=== PATIENT | female | born 1995 | race Caucasian/White ===

== ENCOUNTER 2020-04-19 15:11 | Emergency (ER) | payer OTHER ==
[2020-04-19 17:15] LABS: ABSOLUTE MONOCYTES (AUTO) 0.3 10^3/uL (0.1-1.4); ABSOLUTE NEUT (AUTO) 6.1 10^3/uL (1.7-8.2); BASOPHILS % (AUTO) 0.2 % (0-2); EOSINOPHILS % (AUTO) 0.2 % (0-6); HEMATOCRIT 42.6 % (36.0-47.0); HEMOGLOBIN 14.9 g/dL (12.0-15.5); LYMPHOCYTES % (AUTO) 13.6 % (13-45); MEAN CORPUSCULAR HEMOGLOBIN 30.1 pg (27.0-33.4); MEAN CORPUSCULAR HGB CONC 34.9 g/dL (32.0-36.0); MEAN CORPUSCULAR VOLUME 86 fl (80-97); MONOCYTES % (AUTO) 4.5 % (3-13); PLATELET COUNT 237 10^3/uL (150-450); RED BLOOD COUNT 4.94 10^6/uL (3.72-5.28); SEGMENTED NEUTROPHILS % (AUTO) 81.5 % (42-78); TOTAL CELLS COUNTED % (AUTO) 100 %; WHITE BLOOD COUNT 7.5 10^3/uL (4.0-10.5)
[2020-04-19 17:24] LABS: APPEARANCE,URINE CLOUDY; BILIRUBIN,URINE NEGATIVE (NEGATIVE); COLOR,URINE YELLOW; GLUCOSE, URINE NEGATIVE (NEGATIVE); KETONES,URINE TRACE mg/dL (NEGATIVE); LEUKOCYTE ESTERASE,URINE NEGATIVE (NEGATIVE); NITRITE,URINE NEGATIVE (NEGATIVE); PROTEIN,URINE 30 mg/dL (NEGATIVE); UROBILINOGEN,URINE NEGATIVE mg/dL (<2.0)
[2020-04-19 17:35] LABS: ALBUMIN 4.6 g/dL (3.5-5.0); ALKALINE PHOSPHATASE 47 U/L (38-126); ANION GAP 8 (5-19); ASPARTATE AMINO TRANSFERASE 29 U/L (14-36); BILIRUBIN,TOTAL 0.7 mg/dL (0.2-1.3); BLOOD UREA NITROGEN 10 mg/dL (7-20); CALCIUM 9.5 mg/dL (8.4-10.2); CARBON DIOXIDE 25 mmol/L (22-30); CHLORIDE 105 mmol/L (98-107); GLUCOSE 92 mg/dL (75-110); POTASSIUM 4.2 mmol/L (3.6-5.0); TOTAL PROTEIN 7.8 g/dL (6.3-8.2)
--- NOTE | 2020-04-19 19:00 | ER Document Report ---
ED General - General Chief Complaint: Cough Stated Complaint: WEAKNESS Time Seen by Provider: 04/19/20 18:02 Mode of Arrival: Ambulatory Information source: Patient - HPI Notes: Patient presents with 1 month of generalized body aches weakness fatigue. She also states she is had a dry cough and some congestion. She states she has seen 2 doctors in [place] for this and diagnosed with a sinus infection and a viral syndrome. She was started on a Medrol Dosepak and finished this but feels no different. She denies any known covert virus exposures. She states that her body aches are generalized and moderate in intensity. They are worse with exertion and better with rest. They do radiate throughout her body. She denies any vomiting or diarrhea. No known documented fevers. No rashes. No known tick bites - Related Data Allergies/Adverse Reactions: Penicillins Allergy (Verified 04/19/20 16:57) Past Medical History - General Information source: Patient - Social History Smoking Status: Never Smoker Frequency of alcohol use: None Drug Abuse: None Family History: Reviewed & Not Pertinent Patient has homicidal ideation: No Review of Systems - Review of Systems Constitutional: Chills, Malaise, Weakness, Recent illness Cardiovascular: denies: Chest pain, Palpitations Respiratory: Cough. denies: Short of breath -: Yes All other systems reviewed and negative Physical Exam - Vital signs Vitals: Temp Pulse Resp BP Pulse Ox 98.3 F 96 16 132/97 H 99 04/19/20 16:55 04/19/20 16:55 04/19/20 16:55 04/19/20 16:55 04/19/20 16:55 Interpretation: Normal - General General appearance: Appears well, Alert - HEENT Head: Normocephalic, Atraumatic Eyes: Normal Pupils: PERRL - Respiratory Respiratory status: No respiratory distress Chest status: Nontender Breath sounds: Normal Chest palpation: Normal - Cardiovascular Rhythm: Regular Heart sounds: Normal auscultation Murmur: No - Abdominal Inspection: Normal Distension: No distension Bowel sounds: Normal Tenderness: Nontender Organomegaly: No organomegaly - Back Back: Normal, Nontender - Extremities General upper extremity: Normal inspection, Nontender, Normal color, Normal ROM, Normal temperature General lower extremity: Normal inspection, Nontender, Normal color, Normal ROM, Normal temperature, Normal weight bearing. No: Cornelius's sign - Neurological Neuro grossly intact: Yes Cognition: Normal Orientation: AAOx4 [place] Coma Scale Eye Opening: Spontaneous [place] Coma Scale Verbal: Oriented [place] Coma Scale Motor: Obeys Commands [place] Coma Scale Total: 15 Speech: Normal Motor strength normal: LUE, RUE, LLE, RLE Sensory: Normal - Psychological Associated symptoms: Normal affect, Normal mood - Skin Skin Temperature: Warm Skin Moisture: Dry Skin Color: Normal Course - Re-evaluation Re-evalutation: 04/19/20 18:59 Patient presents with 1 month of viral-like syndrome complaints. Exam was unremarkable. Vitals are stable. Laboratories are also unremarkable. I will order a COVID test and have the patient follow-up as an outpatient. - Vital Signs Vital signs: Temp Pulse Resp BP Pulse Ox 98.3 F 96 16 132/97 H 99 04/19/20 16:58 04/19/20 16:55 04/19/20 16:55 04/19/20 16:55 04/19/20 16:55 - Laboratory Result Diagrams: 04/19/20 16:57 04/19/20 16:57 Laboratory results interpreted by me: 04/19/20 04/19/20 16:57 16:57 Seg Neutrophils % 81.5 H Urine Protein 30 H Urine Ketones TRACE H Urine Blood MODERATE H Urine Ascorbic Acid 20 H Discharge - Discharge Clinical Impression: Viral syndrome Condition: Stable Disposition: HOME, SELF-CARE Instructions: Viral Syndrome ([facility]) Forms: Return to Work
[2020-04-19 19:04] VITALS: BP 134/88
== END 2020-04-19 19:10 | disposition home or self-care (01) ==
LOC: ER 15:11
DX: B34.9 Viral infection, unspecified (principal); R52 Pain, unspecified; R53.1 Weakness; R53.83 Other fatigue; R05 Cough; R53.81 Other malaise; R68.83 Chills (without fever); Z88.0 Allergy status to penicillin; Z20.828 Contact with and (suspected) exposure to other viral communicable diseases
CPT/HCPCS: 99284; 36415; 84703; 85025; 87635; 81025; 80053; 81001; C9803